=== PATIENT | female | born 1970 | race Caucasian/White ===

== ENCOUNTER 2018-04-18 08:53 | Day surgery (SDC) | payer BC ==
[2018-04-13 14:45] VITALS: BMI 20.7
[2018-04-18] MEDS ORDERED: PROPOFOL 20 ML ONE ×3 (10:00)
[2018-04-18] MEDS ORDERED: LIDOCAINE HCL/PF 2% SDV 5ML VIAL ONE (10:00)
[2018-04-18 10:40] VITALS: PULSE 60; TEMP 97.8
[2018-04-18 12:03] VITALS: BP 110/65
== END 2018-04-18 11:00 | disposition home or self-care (01) ==
LOC: FASU-ENDO 08:53
PROVIDERS: ATTEND Internal Medicine Gastroenterology
PROC: 0DJD8ZZ Inspection of Lower Intestinal Tract, Via Natural or Artificial Opening Endoscopic (ICD-10-PCS; principal; 2018-04-18 10:00)
DX: D50.9 Iron deficiency anemia, unspecified (principal); K62.5 Hemorrhage of anus and rectum; K64.8 Other hemorrhoids
CPT/HCPCS: 84703